=== PATIENT | female | born 1980 | race Caucasian/White ===

== ENCOUNTER 2019-09-23 06:40 | Emergency (ER) | payer OTHER ==
[~2019-09-23] VITALS: Ht 154.9 cm; Wt 90.7 kg
[2019-09-23] MEDS ORDERED: AZO BLADDER CO300 MG PO (07:06)
[2019-09-23 07:46] LABS: CALCIUM 8.6 mg/dL (8.5-10.1); CREATININE 0.7 mg/dL (0.6-1.3); POTASSIUM 3.6 mmol/L (3.5-5.1)
[2019-09-23 08:33] LABS: URINE BILIRUBIN NEGATIVE (Negative); URINE BLOOD 3+ (Negative); URINE CLARITY CLOUDY; URINE COLOR YELLOW; URINE GLUCOSE-RANDOM NEGATIVE (Negative); URINE KETONES NEGATIVE (Negative); URINE LEUKOCYTES-REFLEX 1+ (Negative); URINE NITRITE-REFLEX NEGATIVE (Negative); URINE PROTEIN 2+ (Negative); URINE UROBILINOGEN 0.2 E.U./dl (0.2-1.0)
[2019-09-23 08:39] LABS: SQUAMOUS >10 Many /LPF (0-3)
[2019-09-23 08:40] LABS: WBC CLUMPS Moderate (None Seen)
[2019-09-23 08:42] LABS: BACTERIA-REFLEX >30 Many /HPF (None Seen); MUCUS 0-3 Light strn/LPF (None Seen); URINE RBC >20 Many /HPF (0-2); URINE WBC-REFLEX >25 Many /HPF (0-5)
[2019-09-23 08:43] LABS: CASTS None Seen /LPF (None Seen); CRYSTALS None Seen /LPF (None Seen)
[2019-09-23] MEDS ORDERED: BACTRIM DS TAB1 EAC1 PO (08:50)
[2019-09-23] MEDS ORDERED: PHENAZOPYRIDIN200 M2 PO (08:50)
[2019-09-23 09:00] VITALS: BP 136/86
== END 2019-09-23 09:00 | disposition home or self-care (01) ==
LOC: M.ERS 06:40
PROVIDERS: Emergency Medicine Emergency Medical Services
DX: N39.0 Urinary tract infection, site not specified (principal)